=== PATIENT | male | born 1960 | race Caucasian/White ===

== ENCOUNTER 2021-02-28 17:02 | Emergency (ER) | payer BC ==
[~2021-02-28] VITALS: Ht 177.8 cm; Wt 77.1 kg
[2021-02-28 17:17] VITALS: BP_SYST 126
--- NOTE | 2021-02-28 17:17 | NUR ---
Placed in room 2 . 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 To gown for exam. Side rails up. Report given to [employer] MURRY.
--- NOTE | 2021-02-28 17:25 | NUR ---
RECEIVED AND IN ROOM, CALM, ALERT, TREMORS, HX OF SEIZURES. NO COMPLAINTS. WOUND CARE PERFORMED. BLEEDING CONTROLLED
--- NOTE | 2021-02-28 17:33 | NUR ---
DR KING IN TO ASSESS
--- NOTE | 2021-02-28 17:48 | NUR ---
UPDATE TO , QUESTIONS ANSWERED, NO CONCERNS
[2021-02-28] MEDS ORDERED: LEVE500T9 PO (17:53)
[2021-02-28] MEDS ORDERED: CEL20 PO (17:53)
[2021-02-28] MEDS ORDERED: POTA-88 PO (17:53)
[2021-02-28] MEDS ORDERED: MEMA10TA PO (17:53)
[2021-02-28 17:55] LABS: BASOPHILS # (AUTO) 0.1 K/uL (0.0-0.2); BASOPHILS % (AUTO) 0.8 % (0.0-2.0); EOSINOPHILS # (AUTO) 0.1 K/uL (0.0-0.4); EOSINOPHILS % (AUTO) 1.2 % (0.0-4.0); HEMATOCRIT 44.9 % (36-54); HEMOGLOBIN 15.2 g/dL (14.0-18.0); LYMPHOCYTES # (AUTO) 1.2 K/uL (1.0-5.5); LYMPHOCYTES % (AUTO) 12.4 % (20.5-51.5); MEAN CORPUSCULAR HEMOGLOBIN 32 pg (27-31); MEAN CORPUSCULAR HGB CONC 34 % (32-36); MEAN CORPUSCULAR VOLUME 94 fL (79.0-98.0); MONOCYTES # (AUTO) 0.7 K/uL (0.0-1.0); MONOCYTES % (AUTO) 7.6 % (1.7-9.3); NEUTROPHILS # (AUTO) 7.3 K/uL (1.8-7.7); PLATELET COUNT (AUTO) 264 K/uL (130-430); RED BLOOD CELL COUNT(AUTO) 4.79 MIL/uL (4.2-6.2); RED CELL DISTRIBUTION WIDTH 14.2 % (9.0-15.0); WHITE BLOOD COUNT (AUTO) 9.4 K/uL (4.8-10.8)
[2021-02-28 18:00] LABS: CREATININE 1.2 mg/dL (0.55-1.30); POTASSIUM 3.4 mmol/L (3.5-5.1)
[2021-02-28 18:06] LABS: INR 1.2 (0.80-1.20); PROTHROMBIN TIME 12.7 SECS (9.5-12.5)
[2021-02-28 18:09] LABS: ALBUMIN 3.6 g/dL (3.4-4.8); TOTAL BILIRUBIN 0.6 mg/dL (0.0-1.0)
--- NOTE | 2021-02-28 18:17 | NUR ---
PT CALM, ALERT, CLEAR MENTATION AND SPEECH, RESP UNLABORED, NO DISTRESS
--- NOTE | 2021-02-28 19:16 | NUR ---
BACK FROM CT, NO CHANGE IN MENTATION, CALM, ALERT, VSS
[2021-02-28] MEDS ORDERED: LIDOCAINE/EPI 1% 1:100000 20 ML VIAL INJ ONE (19:30)
[2021-02-28] MEDS ORDERED: POTASSIUM CHLORIDE 20 MEQ/PKT PACKET PO ONE (19:30)
--- NOTE | 2021-02-28 19:30 | NUR ---
Opening Note Received report from AM nurse using SBAR approach.
[2021-02-28] MEDS ORDERED: DIPH-TET-PERTUS Vaccine 0.5 ML VIAL (ADACEL) I.M. ONE (20:15)
[2021-02-28] MEDS ORDERED: levETIRAcetam 500 MG TABLET PO ONE (20:45)
[2021-02-28] MEDS ORDERED: CEPH500C2 PO (20:54)
[2021-02-28 21:10] VITALS: BP_SYST 135
--- NOTE | 2021-02-28 21:11 | NUR ---
Patient given written and verbal discharge instructions and verbalizes understanding. ER MD discussed with patient the results and treatment provided. Patient in stable condition. ID arm band removed. Rx of KEFLEX given. Patient educated on pain management and to follow up with PMD. Pain Scale 0/10. Opportunity for questions provided and answered. Medication side effect fact sheet provided.
== END 2021-02-28 22:11 | disposition home or self-care (01) ==
LOC: SED 17:02
DX: S02.2XXA Fracture of nasal bones, initial encounter for closed fracture (principal); S01.511A Laceration without foreign body of lip, initial encounter; S01.81XA Laceration without foreign body of other part of head, initial encounter; Z79.899 Other long term (current) drug therapy; W18.39XA Other fall on same level, initial encounter; Y93.89 Activity, other specified; Y92.89 Other specified places as the place of occurrence of the external cause; Y99.8 Other external cause status
CPT/HCPCS: 36415; 70450-TC; 70486-TC; 76376; 80053; 84484; 85025; 85610-TC; 93005; 99285